=== PATIENT | male | born 2000 | race Caucasian/White ===

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

== ENCOUNTER 2022-12-26 20:23 | Emergency (ER) | payer OTHER ==
[~2022-12-26] VITALS: Ht 177.8 cm; Wt 74.8 kg
[2022-12-26 21:50] VITALS: BP 124/69
[2022-12-26] MEDS ORDERED: ACETAMINOPHEN ES 500 MG TABLET PO ONE (22:00)
[2022-12-26] MEDS ORDERED: ACETAMINOPHEN ES 500 MG TABLET ONE (22:00)
[2022-12-26] MEDS ORDERED: IBUPROFEN 600 MG TABLET ONE (22:00)
[2022-12-26] MEDS ORDERED: IBUPROFEN 600 MG TABLET PO ONE (22:00)
[2022-12-26] MEDS ORDERED: IBUP-1953 PO (22:11)
[2022-12-26] MEDS ORDERED: HYDR-3972 PO (22:11)
== END 2022-12-26 23:00 | disposition home or self-care (01) ==
LOC: ER 20:25
DX: S62.324A Displaced fracture of shaft of fourth metacarpal bone, right hand, initial encounter for closed fracture (principal); W20.8XXA Other cause of strike by thrown, projected or falling object, initial encounter; Y93.67 Activity, basketball; Y92.89 Other specified places as the place of occurrence of the external cause; Y99.8 Other external cause status
CPT/HCPCS: 73130-TC